=== PATIENT | female | born 1960 | race Caucasian/White ===

== ENCOUNTER 2021-02-16 08:29 | Day surgery (SDC) | payer OTHER ==
--- NOTE | 2021-02-13 10:57 | HP ---
PROCEDURE DATE: 02/16/2021 HISTORY OF PRESENT ILLNESS: Patient is a 60 y/o. Last colonoscopy 9 years ago. No bloody stools. No change in bowel movements. No pain. Family history of brother with rectal cancer. Father with esophageal cancer. No abdomen surgeries per the patient. The patient has had a personal history of thyroid cancer. She has had breast cancer too. PAST MEDICAL HISTORY: As mentioned above. CURRENT MEDICATIONS: Levothyroxine. ALLERGIES: NKDA. PAST SURGICAL HISTORY: She had a tubal, ACL on the right and left in the past. She had a lumpectomy in the breast in the past. Thyroidectomy. Carpal tunnel. Bilateral mastectomy. FAMILY HISTORY: Rectal, esophageal, and breast cancer. SOCIAL HISTORY: No smoking. Does drink some alcohol. REVIEW OF SYSTEMS: 14 systems reviewed. No chest pain or palpitations. Other systems negative or noncontributory other than above and per preadmission questionnaire. PHYSICAL EXAMINATION: GENERAL: No acute distress. HEENT: Sclerae nonicteric. NECK: No JVD. CHEST: Equal excursion. Nonlabored breathing. CVS: Regular rate and rhythm. ABDOMEN: Soft. No peritoneal signs. EXTREMITIES: No significant edema. NEURO: Alert and oriented, moving extremities symmetrically. PSYCH: Appropriate mood and affect. RECTAL: Deferred until time of endoscopy exam. IMPRESSION: 1. FAMILY HISTORY OF COLORECTAL CANCER. SHE IS IN NEED OF FOLLOW-UP SCREENING COLONOSCOPY. Feel she is a candidate. Risks and benefits explained detail, but not limited to, bleeding; infection; small risk of bowel injury or perforation possibly requiring open procedure; risk of missed or nondiagnosis or incomplete exam possibly requiring barium enema or other studies or procedures; general risk of anesthesia or sedation; risk of bowel prep, but not limited. Consent obtained. Will proceed with outpatient screening colonoscopy.
[~2021-02-16 08:29] MED LIST: Lactated Ringers 1,000 ML IV ONE; Lactated Ringers 1,000 ML IV SCH
[2021-02-16] MEDS ORDERED: DIPRIVAN 200 MG/20 ML IV ONE ×2 (10:16→10:54)
[2021-02-16] MEDS ORDERED: Versed 2 MG/2 ML Injection ONE (10:36)
[2021-02-16 11:29] VITALS: O2SAT 100
[2021-02-16 11:55] VITALS: BP 147/64; PULSE 47
--- NOTE | 2021-02-16 14:23 | OP ---
SURGERY DATE/TIME: 02/16/2021 1034 PREOPERATIVE DIAGNOSIS: Need for screening colonoscopy. POSTOPERATIVE DIAGNOSES: Small early polyp versus hyperplastic lesion sigmoid colon and rectum. PROCEDURES: 1) Colonoscopy to cecum. 2) Hot biopsy polypectomy small, early polyps sigmoid colon and rectum versus hyperplastic lesion sigmoid colon and rectum, path pending. 3) ASA Class II. 4) Withdrawal time approximately 12 minutes. SURGEON: Dr. Stephen Wood. GIFT SHOP ASSISTANT: Pedro Oliva, Medical Student 4. ANESTHESIA: MAC. ESTIMATED BLOOD LOSS: Minimal. INDICATIONS: As noted above. Risks and benefits explained in detail but not limited to and consent obtained. DESCRIPTION OF PROCEDURE AND FINDINGS: The patient is taken to the endoscopy room. MAC anesthesia introduced. After official time out and no disagreement with planned procedure, digital rectal exam did not reveal any large rectal masses. Video colonoscope inserted and passed up the tortuous sigmoid, descending, transverse and ascending colon around to the cecum. Appendiceal orifice and valve well visualized. The scope is then carefully withdrawn over the next 12 minutes. Prep overall was fair, some liquidy semi-solid stool slightly limiting exam for small lesion. Otherwise the scope was carefully withdrawn. No signs of any large polyps, masses or obstructing lesions. In the cecum there is some very small 1.5 mm to 2 mm size early polyps versus hyperplastic lesion removed with hot biopsy forceps with brief bursts of cautery. Good hemostasis noted. Another two or three in the rectum in a similar fashion removed with hot biopsy forceps with brief bursts of cautery. Good hemostasis noted. No signs of any large polyps, masses or obstructing lesions. The scope was withdrawn. She tolerated the procedure well. Findings discussed with the family out in the waiting area.
== END 2021-02-16 12:00 | disposition home or self-care (01) ==
LOC: SDC 08:29
PROVIDERS: ATTEND Surgery
DX: Z12.11 Encounter for screening for malignant neoplasm of colon (principal); Z80.0 Family history of malignant neoplasm of digestive organs; K63.5 Polyp of colon
CPT/HCPCS: 88305; J2250; J2704